=== PATIENT | female | born 1980 ===

== ENCOUNTER 2023-01-22 05:30 | Day surgery (SDC) | payer OTHER ==
[2023-01-22] MEDS ORDERED: MACROBID 100 M100 MG PO (09:26)
[2023-01-22] MEDS ORDERED: TRAM1TAB98 PO (09:27)
== END 2023-01-22 15:10 | disposition home or self-care (01) ==
LOC: CIR.AMB 05:30
PROVIDERS: ATTEND Obstetrics & Gynecology Gynecology
DX: N39.3 Stress incontinence (female) (male) (principal); Z20.822 Contact with and (suspected) exposure to COVID-19; Z91.041 Radiographic dye allergy status
CPT/HCPCS: 57288; C1771